=== PATIENT | female | born 1980 | race Caucasian/White ===

== ENCOUNTER 2023-06-06 20:25 | Emergency (ER) | payer MEDICAID ==
[2023-06-06 20:38] VITALS: BP 126/82; O2SAT 99
[2023-06-06 20:43] LABS: RAPID STREP SCREEN Negative (Negative)
--- NOTE | 2023-06-06 21:18 | ED Physician Documentation ---
History of Present Illness - Stated complaint Stated Complaint: SORE THROAT - Chief complaint Chief Complaint: Heent - History obtained from History obtained from: Patient - Additonal information Additional information: 42yF p/w sore throat X few days with tmax 100.1 oral. throat pain is mostly on left side. denies n/v/d soa cough cp or nasal congestion/ear pain. PD PAST MEDICAL HISTORY - Past Medical History Past Medical History: Yes Respiratory: Pneumonia Endocrine/Autoimmune: None GI: Pancreatitis Musculoskeletal: Chronic back pain - Past Surgical History Past Surgical History: Yes General: Cholecystectomy - Present Medications Home Medications: Ambulatory Orders Medication Instructions Recorded Confirmed Buprenorphine HCl/Naloxone HCl 1 tab PO DAILY 09/03/15 01/19/17 [Suboxone 12 mg-3 mg Sl Film] Albuterol Sulf [Ventolin Hfa 1 - 2 puffs INH Q4HR PRN #1 inhaler 01/19/17 Inhaler] Benzonatate [Tessalon] 100 mg PO TID PRN #25 capsule 01/19/17 cephALEXin [Keflex] 500 mg PO TID #21 capsule 01/19/17 dexAMETHasone [Decadron] 4 mg PO DAILY #5 tablet 01/19/17 - Allergies Allergies/Adverse Reactions: Allergies Allergy/AdvReac Type Severity Reaction Status Date / Time No Known Drug Allergies Allergy Verified 06/06/23 20:30 - Social History Does the pt smoke?: Yes Smoking Status: Current every day smoker Does the pt drink ETOH?: No Does the pt have substance abuse?: No - Immunizations Immunizations are current?: Yes Immunizations: TDAP current <10years - POLST Patient has POLST: No PD ED PE NORMAL - Vitals Vital signs reviewed: Yes - General General: Alert and oriented X 3, No acute distress, Well developed/nourished - HEENT HEENT: Atraumatic, PERRL, EOMI, Ears normal, Moist mucous membranes, Pharynx benign - Neck Neck: Supple, no meningeal sign, Other (mild BL anterior cervical LAD) - Cardiac Cardiac: RRR - Respiratory Respiratory: No respiratory distress, Clear bilaterally Results - Vitals Vitals: Vital Signs - 24 hr 06/06/23 20:30 Temperature 37.2 C Heart Rate 86 Respiratory 16 Rate Blood Pressure 126/82 H O2 Saturation 99 Oxygen O2 Source Room air - Labs Labs: Laboratory Tests 06/06/23 20:32 Group A Strep Rapid Negative PD Medical Decision Making - ED course ED course: 42yF p/w sore throat X few days, with multiple sick contacts at home with viral illness. strep swab negative. symptom care discussed and return precautions given. plan to f/u with pcp. Departure - Departure Disposition: Home, Self Care Clinical Impression: Sore throat (viral) Condition: Stable Instructions: ED Pharyngitis Viral Comments: You were seen in the emergency department for sore throat. A strep culture was sent and we will call you if it is positive. Please follow-up with your primary care provider and return to the emergency department if you have any new or worsening symptoms or other concerns. Forms: PCP List Discharge Date/Time: 06/06/23 21:29
== END 2023-06-06 21:29 | disposition home or self-care (01) ==
LOC: ED 20:25
DX: J02.9 Acute pharyngitis, unspecified (principal); F17.200 Nicotine dependence, unspecified, uncomplicated
CPT/HCPCS: 87070; 87430; 99283